=== PATIENT | female | born 1950 | race Caucasian/White ===

== ENCOUNTER → 2018-09-15 | Outpatient (CLI) | payer MEDICARE, OTHER ==
--- NOTE | 2018-09-15 11:16 | RADIOLOGY REPORT (SQ) ---
EXAM DESCRIPTION: ACUTE ABDOMEN SERIES COMPLETED DATE/TIME: 09/15/2018 10:49 am REASON FOR STUDY: GAS PAIN R14.1 GAS PAIN COMPARISON: None. NUMBER OF VIEWS: Three views. TECHNIQUE: Frontal chest, supine abdomen and upright abdomen radiographic images acquired. LIMITATIONS: None. FINDINGS: CHEST: Lungs clear of infiltrates. No cardiomegaly. No pleural effusion or pneumothorax. Large retrocardiac hiatal hernia with air-fluid level FREE AIR: None. No abnormal gas collections. BOWEL GAS PATTERN: Nonobstructive pattern. No dilated loops or air fluid levels. CALCIFICATIONS: No suspicious calcifications. HARDWARE: Clips right upper quadrant post cholecystectomy SOFT TISSUES: No gross mass or suggestion of organomegaly. BONES: No acute fracture. No worrisome bone lesions. OTHER: No other significant finding. IMPRESSION: NO RADIOGRAPHIC EVIDENCE FOR ACUTE ABDOMINAL DISEASE. TECHNICAL DOCUMENTATION: JOB ID: [id number] [employer]- All Rights Reserved Reading location - IP/workstation name: [facility]
== END ==
LOC: RAD 10:13
PROVIDERS: ATTEND Family Medicine
DX: R14.1 Gas pain (principal)
CPT/HCPCS: 74022

== ENCOUNTER → 2018-10-31 | Outpatient (CLI) | payer MEDICARE, OTHER ==
--- NOTE | 2018-10-31 14:49 | RADIOLOGY REPORT (SQ) ---
EXAM DESCRIPTION: KNEE BILAT AP UPRIGHT COMPLETED DATE/TIME: 10/31/2018 1:19 pm REASON FOR STUDY: M25.561 CHRONIC PAIN OF RIGHT KNEE M25.561 PAIN IN RIGHT KNEE COMPARISON: None. NUMBER OF VIEWS: 1 TECHNIQUE: AP standing bilateral knees. LIMITATIONS: None. FINDINGS: MINERALIZATION: Normal. RIGHT KNEE BONES: No acute fracture. No worrisome bone lesions. MEDIAL COMPARTMENT: No significant osteophytes. No joint space narrowing. Mild calcification in t he meniscus. LATERAL COMPARTMENT: No significant osteophytes. No joint space narrowing. Mild calcification in the meniscus. LEFT KNEE BONES: No acute fracture. No worrisome bone lesions. MEDIAL COMPARTMENT: No significant osteophytes. No joint space narrowing. Mild meniscal calcifica tion. LATERAL COMPARTMENT: No significant osteophytes. No joint space narrowing. Mild meniscal calcific ation. IMPRESSION: NEGATIVE STUDY OF THE STANDING LEFT AND RIGHT KNEES. NO SIGNIFICANT JOINT SPACE NARROWIN G OR OTHER SIGNS OF ARTHRITIS. TECHNICAL DOCUMENTATION: JOB ID: [id number] [employer]- All Rights Reserved Reading location - IP/workstation name: [email or web address]
== END ==
LOC: RAD 12:47
PROVIDERS: ATTEND Family Medicine
DX: M25.561 Pain in right knee (principal)
CPT/HCPCS: 73565

== ENCOUNTER → 2019-02-12 | Day surgery (SDC) | payer MEDICARE, OTHER ==
[~2019-02-12] MED LIST: LIDOCAINE 1%/EPINEPHRINE INJ 20 ML VIAL ONE
--- NOTE | 2019-02-12 10:50 | Discharge Summary ---
Discharge Summary (SDC) - Discharge Final Diagnosis: Microcalcifications upper outer quadrant left breast Date of Surgery: 02/12/19 Discharge Date: 02/12/19 Treatment or Instructions: Resume preop medications, diet, activity; take Tylenol as needed pain; supportive bra; follow-up with Dr. [facility] in 1-2 weeks. Referrals: MAR CASH MD [Primary Care Provider] - Discharge Diet: As Tolerated Discharge Activity: Activity As Tolerated Home Care Assistance: None Needed Report the Following to Your Physician Immediately: Shortness of Breath, Increase in Pain, Fever over 101 Degrees
--- NOTE | 2019-02-12 10:55 | Operative Report ---
Operative Report DATE OF SURGERY: 02/12/19 PREOPERATIVE DIAGNOSIS: Microcalcifications in the broad cluster upper outer qu adrant left breast POSTOPERATIVE DIAGNOSIS: Same OPERATION: Stereotactically directed incision myomotomy, core biopsies x15 left breast; deployment of clip marker; interpretation of specimen radiograph, and intraoperative mammography SURGEON: MAR CASH ANESTHESIA: Local TISSUE REMOVED OR ALTERED: Multiple cores upper outer quadrant left breast COMPLICATIONS: None ESTIMATED BLOOD LOSS: Scant INTRAOPERATIVE FINDINGS: See below PROCEDURE: The patient was taken from the radiology holding area to the intact room where the left breast was placed in compression using a craniocaudal approach. The target microcalcifications which consisted of the loose cluster in the upper outer quadrant of the left breast with no significant mass-effect was localized. The surface of the left breast was prepped with Betadine and anesthetized with 1% plain lidocaine, alivia made in the skin with 11 blade, and mammotome advanced to the appropriate depth. Pre-and post fire films showed good alignment between the mammotome and the target microcalcifications. We now proceeded to obtain approximately 12 course in a circumferential fashion, predominantly in the lower severe to obtain the target microcalcifications. Specimens were collected, placed on a David dish and an image with the specimen radiograph demonstrating a few microcalcifications with within some dense breast tissue. We elected to perform additional biopsies. I did advance the mammotome 3 mm, and completed a series of additional core biopsies, approximately 8. These were placed in a separate David dish, imaged with the specimen radiograph and felt to have very few microcalcifications. I felt that we had sampled this area sufficiently. We did obtain a completion mammogram which showed some evacuation of the microcalcifications in the target region but some residual microcalcifications as well. Placed a clip marker with the sleeve, and completion mammotomy biopsy imaging showed retention of the clip marker in the cavity. Patient tolerated procedure well. Compressive dressing applied. Discharge instructions provided.
== END ==
LOC: RAD 08:38
PROVIDERS: ATTEND Surgery
DX: R92.0 Mammographic microcalcification found on diagnostic imaging of breast (principal); N60.12 Diffuse cystic mastopathy of left breast
CPT/HCPCS: 88305 ×2; 19081; J3490

== ENCOUNTER → 2019-02-13 | Outpatient (CLI) | payer MEDICARE | LOC: WI 09:31 | PROVIDERS: ATTEND Surgery | DX: R92.0 Mammographic microcalcification found on diagnostic imaging of breast (principal) | CPT/HCPCS: 76098 ==

== ENCOUNTER → 2019-08-11 | Outpatient (CLI) | payer MEDICARE, OTHER ==
--- NOTE | 2019-08-11 10:57 | WOMENS IMAGING REPORT ---
EXAM DESCRIPTION: 3D DX MAMMO LEFT UNILAT COMPLETED DATE/TIME: 08/11/2019 8:57 am REASON FOR STUDY: R92.0 MAMMOGRAPHIC MICROCALCIFICATION FOUND ON DIAGNOSTIC IMAGING OF BREAST R92.0 MAMMOGRAPHIC MICROCALCIFICATION FOUND ON DX IMAGING OF COMPARISON: Diagnostic left breast mammogram dated 02/12/2019. EXAM PARAMETERS: Standard craniocaudal and mediolateral oblique images of the breast recorded using digital acquisition and breast tomosynthesis. Read with the assistance of CAD. .[facility] - [employer] Version 9.2 LIMITATIONS: None. FINDINGS: BREAST LATERALITY: LEFT MASSES: Small stable nodule medial breast. CALCIFICATIONS: See discussion below. ARCHITECTURAL DISTORTION: Status post biopsy upper-outer quadrant breast(Biopsy report --Negative). Biopsy marker clip at the biopsy site. Stable appearing calcifications at and near the biopsy site. A few other scattered calcifications also identified which is stable in appearance. DEVELOPING DENSITY: None. ASYMMETRY: None noted. OTHER: No other significant findings. IMPRESSION: 1. Stable post biopsy changes upper-outer quadrant Left breast, since the examination d ated 02/12/2019. BREAST DENSITY: b. There are scattered areas of fibroglandular density. BIRAD: ASSESSMENT: 2 Benign findings. RECOMMENDATION: 1. Routine mammogram February 2020. COMMENT: The patient has been notified of the results by letter per MQSA requirements. Additional no tification policies are in place for contacting patient with suspicious or incomplete findings. Quality ID #225: The [employer] recommends an annual screening mammogram for women aged 40 years or over. This facility utilizes a reminder system to ensure that all patients receive reminder letters, and/or direct phone calls for appointments. This includes reminders for routine scr eening mammograms, diagnostic mammograms, or other Breast Imaging Interventions when appropriate. Th is patient will be placed in the appropriate reminder system. TECHNICAL DOCUMENTATION: FINDING NUMBER: (1) ASSESSMENT: (1) JOB ID: [id number] [employer]- All Rights Reserved Reading location - IP/workstation name: [email or web address]
== END ==
LOC: WI 08:23
PROVIDERS: ATTEND Surgery
DX: R92.0 Mammographic microcalcification found on diagnostic imaging of breast (principal)
CPT/HCPCS: 77065; G0279

== ENCOUNTER → 2020-03-10 | Outpatient (CLI) | payer MEDICARE, OTHER ==
--- NOTE | 2020-03-10 09:51 | WOMENS IMAGING REPORT ---
EXAM DESCRIPTION: 3D DX MAMMO BILAT IMAGES COMPLETED DATE/TIME: 03/10/2020 9:29 am REASON FOR STUDY: R92.8 OTHER ABNORMAL AND INCONCLUSIVE FINDINGS ON DIAGNOSTIC IMAGING OF EMMY R92.8 OTH ABN AND INCONCLUSIVE FINDINGS ON DX IMAGING OF EMMY COMPARISON: 08/11/2019 EXAM PARAMETERS: Standard craniocaudal and mediolateral oblique views of each breast recorded using digital acquisition and breast tomosynthesis. True lateral view left breast. Read with the assistance of CAD: .[facility] - [employer] Help Version 9.2 LIMITATIONS: None. FINDINGS: RIGHT BREAST MASSES: No suspicious masses. CALCIFICATIONS: No new or suspicious calcifications. ARCHITECTURAL DISTORTION: None. ASYMMETRY: None noted. OTHER: No other significant findings. LEFT BREAST MASSES: No suspicious masses. CALCIFICATIONS: No new or suspicious calcifications. ARCHITECTURAL DISTORTION: None. ASYMMETRY: None noted. OTHER: Biopsy clip upper outer quadrant. IMPRESSION: Stable mammographic pattern. BREAST DENSITY: b. There are scattered areas of fibroglandular density. BIRAD: ASSESSMENT: 2 Benign findings. RECOMMENDATION: RECOMMENDED FOLLOW UP: Annual mammographic follow-up. SPECIFIC INTERVENTION/IMAGING/CONSULTATION RECOMMENDED:No additional intervention/ imaging/consultati on needed at this time. COMMUNICATION:The imaging findings were not discussed with the patient. Her referring provider has be en notified of the findings. COMMENT: The patient has been notified of the results by letter per [place] requirements. Additional no tification policies are in place for contacting patient with suspicious or incomplete findings. Quality ID #225: The [employer] recommends an annual screening mammogram for women aged 40 years or over. This facility utilizes a reminder system to ensure that all patients receive reminder letters, and/or direct phone calls for appointments. This includes reminders for routine scr eening mammograms, diagnostic mammograms, or other Breast Imaging Interventions when appropriate. Th is patient will be placed in the appropriate reminder system. TECHNICAL DOCUMENTATION: FINDING NUMBER: (1) ASSESSMENT: (1) JOB ID: [id number] [employer]- All Rights Reserved Reading location - IP/workstation name: [email or web address]
== END ==
LOC: WI 09:10
PROVIDERS: ATTEND Surgery
DX: R92.8 Other abnormal and inconclusive findings on diagnostic imaging of breast (principal)
CPT/HCPCS: 77066; G0279; 77062